=== PATIENT | male | born 1975 | race Asian ===

== ENCOUNTER 2019-04-06 21:34 | Emergency (ER) | payer BC ==
[~2019-04-06] VITALS: Ht 175.3 cm; Wt 85.7 kg
[2019-04-06 23:09] VITALS: BP 121/72; TEMP 97.8
== END 2019-04-06 23:09 | disposition home or self-care (01) ==
LOC: ED 21:34
DX: M54.12 Radiculopathy, cervical region (principal)
CPT/HCPCS: 99282